=== PATIENT | male | born 1935 | race Caucasian/White ===

== ENCOUNTER 2020-07-04 08:26 | Outpatient (CLI) | payer MEDICARE, OTHER ==
[~2020-07-04 08:26] MED LIST: ACET500T64 PO; ALBU18HF INH; ALLO100T30 PO; AMLO5TAB4 PO; ATEN50TA41 PO; ATOR20TA PO; AZEL205.2 NAS; CELE200C PO; CLOP75TA52 PO; DONE10TA7 PO; FLUT16SP24 NS; HYDR-3245 PO; LAXATIVE PO; LORA10TA75 PO; MULT-717 PO; OXYB5TAB10 PO; OXYC5TAB2 PO; PARO30TA3 PO; TAMS0.4C2 PO; ZOLP-413 PO
[2020-07-04 08:47] LABS: BASOPHILS % (AUTO) 1 % (0-1); EOSINOPHILS % (AUTO) 3 % (1-7); LYMPHOCYTES % (AUTO) 34 % (22-44); MEAN PLATELET VOLUME 8.3 fL (7.4-10.4); MONOCYTES % (AUTO) 7 % (2-9); NEUTROPHILS % (AUTO) 54 % (42-75); PLATELET COUNT 187 x10^3/uL (130-400); RED BLOOD COUNT 4.96 x10^6/uL (4.38-5.82); RED CELL DISTRIBUTION WIDTH 13.6 % (9.4-14.8)
[2020-07-04 08:54] LABS: MICROSCOPIC NOT IND
[2020-07-04 08:57] LABS: ALANINE AMINOTRANSFERASE 25 U/L (12-78); ALBUMIN 3.8 g/dL (3.4-5.0); ANION GAP 3 mmol/L (5-15); C-REACTIVE PROTEIN, QUANT 0.11 mg/dL (0.02-0.49); CALCIUM 9.1 mg/dL (8.5-10.1); CHLORIDE 113 mmol/L (98-107); CREATININE 1.05 mg/dL (0.7-1.3)
[2020-07-04 08:59] LABS: MD NO
[2020-07-04 09:05] LABS: ALKALINE PHOSPHATASE 114 U/L (45-117); BILIRUBIN,TOTAL 0.4 mg/dL (0.2-1.0); CHOL/HDL RATIO 3.3; CHOLESTEROL, TOTAL 150 mg/dL (140-239); CREATINE KINASE, TOTAL 190 U/L (39-308); HDL CHOL % 31 % (26-37); HDL CHOLESTEROL (DIRECT) 46 mg/dL (40-60); LDL CHOLESTEROL,CALCULATED 80 mg/dL (54-169); LDL/HDL RATIO 1.7 (0.5-3.0); TOTAL PROTEIN 7.2 g/dL (6.4-8.2); TRIGLYCERIDES 120 mg/dL (50-200); VLDL CHOLESTEROL 24 mg/dL (0-25)
== END 2020-07-04 23:59 | disposition home or self-care (01) ==
LOC: LAB 08:26
PROVIDERS: ATTEND Family Medicine
DX: K21.9 Gastro-esophageal reflux disease without esophagitis (principal); N40.0 Benign prostatic hyperplasia without lower urinary tract symptoms; E78.5 Hyperlipidemia, unspecified
CPT/HCPCS: 36415; 80053; 80061; 81003; 82550; 83036; 84153; 84443; 85025; 86140; G0103

== ENCOUNTER 2020-07-05 10:15 | Outpatient (CLI) | payer MEDICARE, OTHER ==
[2020-07-05 11:01] LABS: FREE T4 (FREE THYROXINE) 0.68 ng/dL (0.76-1.46)
== END 2020-07-05 23:59 | disposition home or self-care (01) ==
LOC: LAB 10:15
PROVIDERS: ATTEND Ophthalmology
DX: H53.2 Diplopia (principal); H50.89 Other specified strabismus
CPT/HCPCS: 36415; 83036; 83519; 83520; 84439; 84443; 84445; 84480; 86255

== ENCOUNTER 2020-07-11 09:07 | Outpatient (CLI) | payer MEDICARE, OTHER | END 2020-07-11 23:59 | disposition home or self-care (01) | LOC: LAB 09:07 | PROVIDERS: ATTEND Family Medicine | DX: R97.20 Elevated prostate specific antigen [PSA] (principal) | CPT/HCPCS: 36415; 84153; G0103 ==

== ENCOUNTER → 2020-10-30 | Outpatient (CLI) | payer MEDICARE, OTHER ==
[~2020-10-30] MED LIST changes: +BENZ-17 PO; +DORZ10DR27 EACHEYE; +FLUT9.9S NAS; -HYDR-3245 PO; +HYDR1TAB53 PO; +IPRA0.2S35 INH; +MEMA10TA56 PO; +MIRTAZAPINE PO; +MONT10TA6 PO; +MUCINEX LIQUID; +NAPR220C2 PO; +ROPI1TAB4 PO; +SERT100T32 PO; +TADA5TAB2 PO; +TRIAMTERENE PO; +TROS20TA2 PO
[2020-10-30 09:51] LABS: ALBUMIN 3.6 g/dL (3.4-5.0); ANION GAP 4 mmol/L (5-15); CALCIUM 8.6 mg/dL (8.5-10.1); CHLORIDE 109 mmol/L (98-107)
[2020-10-30 09:55] LABS: ALANINE AMINOTRANSFERASE 19 U/L (12-78); ALKALINE PHOSPHATASE 101 U/L (45-117); BILIRUBIN,TOTAL 0.5 mg/dL (0.2-1.0); CREATININE 0.99 mg/dL (0.7-1.3); TOTAL PROTEIN 6.7 g/dL (6.4-8.2)
== END | disposition home or self-care (01) ==
LOC: STAR 07:51
PROVIDERS: ATTEND Surgery
DX: Z01.812 Encounter for preprocedural laboratory examination (principal); Z20.822 Contact with and (suspected) exposure to COVID-19; K40.90 Unilateral inguinal hernia, without obstruction or gangrene, not specified as recurrent; R94.31 Abnormal electrocardiogram [ECG] [EKG]
CPT/HCPCS: 36415; 80053; 93005; U0003

== ENCOUNTER 2020-11-03 05:33 | Day surgery (SDC) | payer MEDICARE, OTHER ==
[2020-10-30 08:27] VITALS: BP 146/83
[~2020-11-03] VITALS: Ht 172.7 cm; Wt 81.0 kg
[2020-11-03] MEDS ORDERED: CHLORHEXIDINE 15 ML UDC MM ONE (07:00)
[2020-11-03] MEDS ORDERED: BUPIVACAINE/PF-EPI 0.5% 1:200K ONE (07:02)
[2020-11-03] MEDS ORDERED: MIDAZOLAM 1 MG/ML, 2ML ONE (07:09)
[2020-11-03] MEDS ORDERED: FENTANYL PF 250 MCG/5ML ONE (07:09)
[2020-11-03] MEDS ORDERED: LABETALOL 5MG/ML, 20ML IV PRN (07:30)
[2020-11-03] MEDS ORDERED: METHOCARBAMOL 1,000 MG in DEXTROSE 5% 100 ML IV PRN (07:30)
[2020-11-03] MEDS ORDERED: ONDANSETRON 2MG/ML, 2ML IVPush PRN (07:30)
[2020-11-03] MEDS ORDERED: OXYcodone 5 MG/5 ML ORAL.SOL UDC PO PRN (07:30)
[2020-11-03] MEDS ORDERED: PROMETHAZINE 25 MG/ML, 1ML IVPush PRN (07:30)
[2020-11-03] MEDS ORDERED: LORazepam 2 MG/ML, 1ML IVPush PRN (07:30)
[2020-11-03] MEDS ORDERED: HYDROmorphone 1 MG/ML, 1ML INJ IVPush PRN (07:30)
[2020-11-03] MEDS ORDERED: EPHEDRINE 50 MG/ML, 1ML IVPush PRN (07:30)
[2020-11-03] MEDS ORDERED: hydrALAzine 20 MG/ML, 1ML IV PRN (07:30)
[2020-11-03] MEDS ORDERED: MEPERIDINE/PF 25MG/0.5ML IVPush PRN (07:30)
[2020-11-03] MEDS ORDERED: LACTATED RINGERS 1,000 ML IV SCH (07:30)
[2020-11-03] MEDS ORDERED: ACETAMINOPHEN 325 MG TABLET PO PRN (07:30)
[2020-11-03] MEDS ORDERED: FENTANYL PF 100 MCG/2ML ONE (09:55)
[2020-11-03] MEDS: FENTANYL PF 100 MCG/2ML IV PRN ×2 (09:56→10:03)
[2020-11-03] MEDS ORDERED: OXYcodone 5 MG/5 ML ORAL.SOL UDC ONE (10:05)
[2020-11-03] MEDS ORDERED: NEOSTIGMINE 1 MG/ML, 10ML ONE (16:06)
[2020-11-03] MEDS ORDERED: CEFAZOLIN 1,000 MG ONE (16:06)
[2020-11-03] MEDS ORDERED: PROPOFOL 10 MG/ML, 20ML ONE (16:06)
[2020-11-03] MEDS ORDERED: SUCCINYLCHOLINE 20 MG/ML, 10ML ONE (16:06)
[2020-11-03] MEDS ORDERED: ROCURONIUM 10MG/ML,5ML ONE (16:06)
[2020-11-03] MEDS ORDERED: KETOROLAC 30 MG/1 ML ONE (16:06)
[2020-11-03] MEDS ORDERED: GLYCOPYRROLATE 0.2MG/1ML, 5ML ONE (16:06)
[2020-11-03] MEDS ORDERED: ONDANSETRON 2MG/ML, 2ML ONE (16:06)
== END 2020-11-03 12:30 | disposition home or self-care (01) ==
LOC: OUT 05:33
PROVIDERS: ATTEND Surgery
DX: K40.20 Bilateral inguinal hernia, without obstruction or gangrene, not specified as recurrent (principal); J45.909 Unspecified asthma, uncomplicated; I10 Essential (primary) hypertension; Z88.8 Allergy status to other drugs, medicaments and biological substances; Z79.899 Other long term (current) drug therapy; Z98.890 Other specified postprocedural states; Z72.89 Other problems related to lifestyle
CPT/HCPCS: 49650; C1781; J0330; J0690; J1885; J2250; J2405; J2704; J2710; J3010; J7120

== ENCOUNTER 2020-11-05 17:11 | Emergency (ER) | payer MEDICARE, OTHER ==
[~2020-11-05] VITALS: Ht 175.3 cm; Wt 83.7 kg
--- NOTE | 2020-11-05 17:26 | NUR ---
Dr. Maza at bedside to evaluate pt. Pt reports inguinal hernia repair x2 days ago. Pt c/o groin bruising and difficulty urinating. Pt placed in gown, positioned for comfort in bed.
[2020-11-05] MEDS ORDERED: LIDOCAINE 2%,20 ML JEL.PF.APP MM ONE (17:48)
[2020-11-05 17:58] LABS: BASOPHILS % (AUTO) 1 % (0-1); EOSINOPHILS % (AUTO) 4 % (1-7); LYMPHOCYTES % (AUTO) 32 % (22-44); MEAN CORPUSCULAR HEMOGLOBIN 30.2 pg (27.5-34.5); MEAN CORPUSCULAR HGB CONC 34.1 g/dL (33.2-36.2); MEAN PLATELET VOLUME 8.4 fL (7.4-10.4); MONOCYTES % (AUTO) 9 % (2-9); NEUTROPHILS % (AUTO) 54 % (42-75); PLATELET COUNT 154 x10^3/uL (130-400); RED BLOOD COUNT 3.62 x10^6/uL (4.38-5.82); RED CELL DISTRIBUTION WIDTH 13.3 % (9.4-14.8)
[2020-11-05 18:00] LABS: MD NO
[2020-11-05 18:10] LABS: ALANINE AMINOTRANSFERASE 28 U/L (12-78); ALBUMIN 3.2 g/dL (3.4-5.0); ANION GAP 5 mmol/L (5-15); CALCIUM 8.2 mg/dL (8.5-10.1); CHLORIDE 113 mmol/L (98-107); CREATININE 0.85 mg/dL (0.7-1.3)
[2020-11-05 18:12] LABS: ALKALINE PHOSPHATASE 81 U/L (45-117); BILIRUBIN,TOTAL 0.5 mg/dL (0.2-1.0); TOTAL PROTEIN 6.1 g/dL (6.4-8.2)
--- NOTE | 2020-11-05 18:47 | NUR ---
Flores inserted per order, pt tolerated well. Education on flores care provided
[2020-11-05 18:51] LABS: MICROSCOPIC NOT IND
--- NOTE | 2020-11-05 18:52 | NUR ---
REPORT RECEIVED FROM RICHARD DUPONT AND MELISSA DUPONT
--- NOTE | 2020-11-05 19:32 | NUR ---
BLADDER SCAN PERFORMED. 0mL RANDOM RESIDUAL VOLUME. PATIENT TOLERATED THIS WELL. DENIED PAIN. SWOLLEN GROIN/SUPRAPUBIC AREA WITH DEPENDENT ECCHYMOSIS. FAMILY AT BEDSIDE. CALL SMITH IN REACH
--- NOTE | 2020-11-05 20:04 | NUR ---
MILLER CATHETER REMOVED PER DR. RUSH VERBAL ORDER. PATIENT NOTIFIED AND EDUCATED ON THIS PROCESS AND REASONING FOR REMOVING IT. FAMILY AT BEDSIDE. NO FURTHER QUESTIONS. 10CC REMOVED FROM BALLOON. MEATUS CLEANSED WITH STERILE GAUZE AND CLEANSING SOAP. MILLER CATHETER PULLED WITH TIP INTACT. NO SIGNS OF BLEEDING. DISCHARGE INSTRUCTIONS REVIEWED WITH PATIENT AND FAMILY AT BEDSIDE. NO FURTHER QUESTIONS. STEADY GAIT TO LOBBY. NO IV PLACED DURING THIS ER VISIT. ALL PERSONAL BELONGINGS WITH PATIENT ON DC.
[2020-11-05 20:07] VITALS: BP 144/82
== END 2020-11-05 20:17 | disposition home or self-care (01) ==
LOC: ED 17:43
DX: S30.1XXA Contusion of abdominal wall, initial encounter (principal); R33.9 Retention of urine, unspecified; Z48.815 Encounter for surgical aftercare following surgery on the digestive system; Z87.891 Personal history of nicotine dependence; X58.XXXA Exposure to other specified factors, initial encounter; Y93.89 Activity, other specified; Y92.89 Other specified places as the place of occurrence of the external cause; Y99.8 Other external cause status
CPT/HCPCS: 36415; 51702; 80053; 81003; 85025; 99284

== ENCOUNTER → 2021-01-29 | Outpatient (CLI) | payer MEDICARE, OTHER ==
[~2021-01-29] MED LIST changes: +REGADENOSON 0.4 MG/5 ML SYRINGE ONE
== END | disposition home or self-care (01) ==
LOC: CVU 10:05
PROVIDERS: ATTEND Internal Medicine Cardiovascular Disease
DX: I08.8 Other rheumatic multiple valve diseases (principal); I25.10 Atherosclerotic heart disease of native coronary artery without angina pectoris; I10 Essential (primary) hypertension
CPT/HCPCS: 93306; J2785

== ENCOUNTER → 2021-02-16 | Outpatient (CLI) | payer MEDICARE, OTHER | END | disposition home or self-care (01) | LOC: CFH 07:30 | PROVIDERS: ATTEND Internal Medicine Cardiovascular Disease | DX: I10 Essential (primary) hypertension (principal); I25.10 Atherosclerotic heart disease of native coronary artery without angina pectoris | CPT/HCPCS: 78452; 93017; A9502; J2785 ==